=== PATIENT | male | born 1985 | race Caucasian/White ===

== ENCOUNTER 2017-02-23 02:05 | Inpatient (IN) | payer MEDICARE, MEDICAID, OTHER ==
[~2017-02-23] VITALS: Ht 182.9 cm; Wt 63.7 kg
[~2017-02-23 02:05] MED LIST: RISP1 PO
[2017-02-23 02:48] VITALS: BP 154/87; PULSE 118; RESP 16; TEMP 98.5; O2SAT 98
--- NOTE | 2017-02-23 02:58 | PD ---
HPI Chief Complaint: Psychiatric Symptoms Time Seen by Provider: 02:10 Travel History International Travel<30 days: No Contact w/Intl Traveler<30days: No Traveled to known affect area: No History of Present Illness HPI 31-year-old male with history of schizophrenia, currently not taking his medications, presents emergency department under [place] act for psychiatric evaluation. Patient states that he has been having increasing auditory hallucinations. He denies suicidal homicidal ideations. Denies illicit drug use. Does drink alcohol occasionally. He has no acute medical needs at this time. PFSH Past Medical History Bipolar Disorder: Yes Anxiety: Yes Diminished Hearing: No Schizophrenia: Yes Tetanus Vaccination: < 5 Years Influenza Vaccination: No Past Surgical History Surgical History: No Previous Surgery Social History Alcohol Use: No Tobacco Use: Yes Substance Use: No (unknown) Allergies-Medications (Allergen,Severity, Reaction): Coded Allergies: No Known Allergies (Unverified Adverse Reaction, Unknown, 02/23/17) Reported Meds & Prescriptions Reported Meds & Active Scripts Active Risperdal (Risperidone) 1 Mg Tab 2 Mg PO Q12HR 30 Days Review of Systems Except as stated in HPI: all other systems reviewed are Neg Physical Exam Narrative GENERAL: Well-nourished male patient with bizarre affect but in no acute distress SKIN: Focused skin assessment warm/dry. HEAD: Atraumatic. Normocephalic. EYES: Pupils equal and round. No scleral icterus. No injection or drainage. ENT: No nasal bleeding or discharge. Mucous membranes pink and moist. NECK: Trachea midline. No JVD. CARDIOVASCULAR: Tachycardic rate and rhythm. No murmur appreciated. RESPIRATORY: No accessory muscle use. Clear to auscultation. Breath sounds equal bilaterally. GASTROINTESTINAL: Abdomen soft, non-tender, nondistended. Hepatic and splenic margins not palpable. MUSCULOSKELETAL: No obvious deformities. No clubbing. No cyanosis. No edema. NEUROLOGICAL: Awake and alert. No obvious cranial nerve deficits. Motor grossly within normal limits. Normal speech. Data Data Last Documented VS Vital Signs Date Time Temp Pulse Resp B/P (MAP) Pulse Ox O2 Delivery O2 Flow Rate FiO2 02/23/17 02:48 98.5 118 16 154/87 (109) 98 Orders Orders Complete Blood Count With Diff (02/23/17 02:10) Basic Metabolic Panel (Bmp) (02/23/17 02:10) Psych Screen (02/23/17 02:10) Drug Screen, Random Urine (02/23/17 02:10) Alcohol (Ethanol) (02/23/17 02:10) MDM Medical Decision Making Medical Screen Exam Complete: Yes Emergency Medical Condition: Yes Medical Record Reviewed: Yes Differential Diagnosis Mood disorder versus personality disorder versus just reaction disorder versus acute psychosis Narrative Course 31year-old male presents to the emergency department under [place] act for psychiatric evaluation. Patient appears without distress. She does have a bizarre affect. Adamantly denies suicidal homicidal ideations. He has been off this medication for an extended amount of time. Lab work is ordered for medical clearance. Pending no acute lab abnormality, patient is medically cleared and a psychiatric screening for further evaluation and disposition. Mental health screening discussed with the patient. Psychiatric screen ordered. Diagnosis Primary Impression: Schizophrenia, paranoid, chronic Condition: Stable Abby Piedra Feb 23, 2017 02:58
[2017-02-23 03:41] LABS: AUTOMATED NEUTROPHIL # 7.2 TH/MM3 (1.8-7.7); BASOPHIL # 0.1 TH/MM3 (0-0.2); BASOPHIL % 0.6 % (0.0-2.0); EOSINOPHIL # 0.1 TH/MM3 (0-0.4); EOSINOPHIL % 0.9 % (0.0-4.0); HEMATOCRIT 41.1 % (39.0-51.0); HEMOGLOBIN 13.7 GM/DL (13.0-17.0); LYMPH % 16.5 % (9.0-44.0); LYMPHOCYTE # 1.6 TH/MM3 (1.0-4.8); MEAN CELL VOLUME 85.4 FL (80.0-100.0); MEAN CORPUSCULAR HEMOGLOBIN 28.4 PG (27.0-34.0); MEAN CORPUSCULAR HGB CONC 33.3 % (32.0-36.0); MEAN PLATELET VOLUME 8.1 FL (7.0-11.0); MONO % 7.8 % (0.0-8.0); MONOCYTE # 0.8 TH/MM3 (0-0.9); NEUT % 74.2 % (16.0-70.0); PLATELET COUNT 243 TH/MM3 (150-450); RED BLOOD COUNT 4.82 MIL/MM3 (4.50-5.90); RED CELL DISTRIBUTION WIDTH 12.2 % (11.6-17.2); WHITE BLOOD COUNT 9.7 TH/MM3 (4.0-11.0)
[2017-02-23 04:15] VITALS: BP 109/57; PULSE 92; RESP 17; O2SAT 95
[2017-02-23 04:23] LABS: BICARBONATE 25.2 MEQ/L (21.0-32.0); CALCIUM 9.2 MG/DL (8.5-10.1); CREATININE 0.78 MG/DL (0.60-1.30)
[2017-02-23 05:08] VITALS: BP 110/58
[2017-02-23 07:00] VITALS: BP 112/60; RESP 16; O2SAT 97
--- NOTE | 2017-02-23 14:44 | HHI.HP ---
Provisional Diagnosis Admission Date [place] I. Schizophrenia, Certification of Person's Competence To Provide Express and Informed Consent I have personally examined Juan David Elliott , a person being served at [facility] on, Feb 23, 2017 14:40. Express and informed consent means consent voluntarily given in writing, by a competent person, after sufficient explanation and disclosure of the subject matter involved to enable the person to make a knowing and willful decision without any element of force, fraud, deceit, duress, or other form of constraint or coercion. This person is 18 years of age or older, is not now known to be incompetent to consent to treatment with a guardian advocate, and does not have a health care surrogate or proxy currently making medical treatment decisions. I have found this person to be one of the following: [x] Competent to provide express and informed consent, as defined above, for voluntary admission to this facility and is competent to provide express and informed consent for treatment. He/she has the consistent capacity to make well reasoned, willful, and knowing decisions concerning his or her medical or mental health treatment. The person fully and consistently understands the purpose of the admission for examination/placement and is fully capable of personally exercising all rights assured under [place] Incompetent to provide express and informed consent to voluntary admission, and this is incompetent to provide express and informed consent to treatment. The person must be transferred to involuntary status and a petition for a guardian advocate filed with the Circuit Court. [] Refusing to provide express and informed consent to voluntary admission but is competent to provide express and informed consent for treatment. The person must be discharged or transferred to involuntary status. Form shall be completed within 24 hours of a person's arrival at the receiving facility and filed in the clinical record of each person: 1. Admitted on a voluntary basis 2. Permitted to provide express and informed consent to his/her own treatment 3. Allowed to transfer from involuntary to voluntary status 4. Prior to permitting a person to consent to his or her own treatment after having been previously found incompetent to consent to treatment. History of Present Illness Capacity: Has Capacity HPI 31-year-old male with multiyear history of schizophrenia, presents under a [place] act initiated by law enforcement. According to the Michaud act, the patient was creating a disturbance at a [employer] last night. He was acting aggressively towards customers. He was described as disorienting and had been making statements such as "you killed my parents" to [facility]. Upon interview, the patient is obviously a poor historian. He does admit to having command auditory hallucinations that are currently telling him to "be quiet". He is frequently looking around the room as if he is experiencing visual hallucinations. He denies suicidal or homicidal ideation, plan or intent at this time. However, he is standing at the wall of his room, talking to himself and striking at the wall. For this he is being given Zyprexa situs 10 mg once. He does state that he normally takes Risperdal and Ativan but has been off his medicines for several months. Apparently he was living in [place] , where he states his home is. He returned to [place] several months ago and has self reportedly been off his psychotropic medicines since that time. He occasionally uses alcohol but his toxicology screen is negative at this time. Review of Systems ROS Limitations: Clinical Condition Psychiatric: COMPLAINS OF: Anxiety, Hallucinations Except as stated in HPI: all other systems reviewed are Neg Past Psych History Psychological trauma history Unknown Violence risk - others (6 mos) Moderate to high Violence risk - self (6 mos) Moderate to high Substance Abuse History Drugs/Alcohol past 12 months None recently. Past Family Social History Coded Allergies: No Known Allergies (Unverified Allergy, Unknown, 02/23/17) Active Scripts Risperidone (Risperdal) 1 Mg Tab, 2 MG PO Q12HR for health for 30 Days, #60 TAB Prov:Marcus Lundberg MD 10/29/16 Family Psych History Unknown. Patient inadequate historian. Social History Used to have a father who lived locally. Father's last address is a homeless group home. Patient currently has no family support but states he does have family members in [place]. He is unemployed. He is obviously disabled from work. Patient's Strengths (min. 2) Verbal and has access to healthcare. Physical Exam GENERAL: SKIN: Warm and dry. HEAD: Normocephalic. EYES: No scleral icterus. No injection or drainage. NECK: Supple, trachea midline. No JVD or lymphadenopathy. CARDIOVASCULAR: Regular rate and rhythm without murmurs, gallops, or rubs. RESPIRATORY: Breath sounds equal bilaterally. No accessory muscle use. GASTROINTESTINAL: Abdomen soft, non-tender, nondistended. MUSCULOSKELETAL: No cyanosis, or edema. BACK: Nontender without obvious deformity. No CVA tenderness. Vital Signs Vital Signs Date Time Temp Pulse Resp B/P (MAP) Pulse Ox O2 Delivery O2 Flow Rate FiO2 02/23/17 07:00 16 112/60 (77) 97 Room Air 02/23/17 04:15 92 02/23/17 02:48 98.5 Lab Results Test 02/23/17 02:36 White Blood Count 9.7 TH/MM3 Red Blood Count 4.82 MIL/MM3 Hemoglobin 13.7 GM/DL Hematocrit 41.1 % Mean Corpuscular Volume 85.4 FL Mean Corpuscular Hemoglobin 28.4 PG Mean Corpuscular Hemoglobin Concent 33.3 % Red Cell Distribution Width 12.2 % Platelet Count 243 TH/MM3 Mean Platelet Volume 8.1 FL Neutrophils (%) (Auto) 74.2 % Lymphocytes (%) (Auto) 16.5 % Monocytes (%) (Auto) 7.8 % Eosinophils (%) (Auto) 0.9 % Basophils (%) (Auto) 0.6 % Neutrophils # (Auto) 7.2 TH/MM3 Lymphocytes # (Auto) 1.6 TH/MM3 Monocytes # (Auto) 0.8 TH/MM3 Eosinophils # (Auto) 0.1 TH/MM3 Basophils # (Auto) 0.1 TH/MM3 CBC Comment DIFF FINAL Differential Comment Blood Urea Nitrogen 15 MG/DL Creatinine 0.78 MG/DL Random Glucose 90 MG/DL Calcium Level 9.2 MG/DL Sodium Level 140 MEQ/L Potassium Level 3.8 MEQ/L Chloride Level 105 MEQ/L Carbon Dioxide Level 25.2 MEQ/L Anion Gap 10 MEQ/L Estimat Glomerular Filtration Rate 117 ML/MIN Ethyl Alcohol Level 3 MG/DL Mental Status Examination Appearance: Disheveled Consciousness: Alert Orientation: Person, Place, Date/Time Motor Activity: Normal gait Speech: Hesitant Language: Adequate Fund of Knowledge: Adequate Attention and Concentration: Inadequate Memory: Impaired Mood: Appropriate Affect: Anxious Thought Process & Associations: Disorganized Thought Content: Bizarre thinking, Ideas of reference, Hallucinations, Delusional Hallucination Type: Auditory Delusion Type: None Suicidal Ideation: No Suicidal Plan: No Suicidal Intention: No Homicidal Ideation: No Homicidal Plan: No Homicidal Intention: No Insight: Fair Judgment: Poor Assessment & Plan Problem List: (1) Schizophrenia, paranoid, chronic ICD Codes: F20.0 - Paranoid schizophrenia Status: Acute Assessment & Plan Estimated LOS: days. 31-year-old male with multiyear history of schizophrenia , presents with at least several month history of noncompliance with his antipsychotic medications. Patient placed under a [place] act by law enforcement for threatening passersby. Patient was also physically striking the wall of his room. He is responding to auditory hallucinations. For these reasons he is being admitted for further evaluation and treatment. This physician has ordered a CBC and comprehensive metabolic panel to determine if any infectious process or metabolic process might be causing or contributing to the patient's psychosis. Additionally, this physician ordered a thyroid- stimulating hormone level, vitamin B 12 level and vitamin D level as deficiencies in these areas can cause or contribute to confusion and psychosis. This physician has also ordered an EKG to determine the patient's cardiac conduction status prior to significantly changing his psychotropic medicines, which can adversely affect the electrical system of his heart. This physician spoke with the patient's nurse, Abby, regarding his recent behavior. Lastly , case management will be involved to assist with further information gathering and disposition planning. Campbell Baker MD Feb 23, 2017 14:44
[2017-02-23] MEDS ORDERED: ALUMINUM/MAGNESIUM/SIMETH 30 ML CUP PO PRN (14:45)
[2017-02-23] MEDS ORDERED: OLANZapine ODT 10 MG TAB PO ONE (14:45)
[2017-02-23] MEDS ORDERED: ACETAMINOPHEN 325 MG TAB PO PRN (14:45)
[2017-02-23] MEDS ORDERED: LORazepam 2 MG/ML VIAL IM PRN (14:45)
[2017-02-23] MEDS ORDERED: hydrOXYzine HCL 50 MG TAB PO PRN (14:45)
[2017-02-23] MEDS ORDERED: traZODone HCL 50 MG TAB PO PRN (14:45)
[2017-02-23] MEDS ORDERED: MAGNESIUM HYDROXIDE SUSP 30 ML CUP PO PRN (14:45)
[2017-02-23 18:22] VITALS: BP 121/81; PULSE 83; RESP 18; TEMP 98.8; O2SAT 98
[2017-02-23] MEDS: risperiDONE 1 MG TAB PO SCH (20:52)
[2017-02-24 06:28] VITALS: BP 98/53; PULSE 61; RESP 18; TEMP 97.9; O2SAT 100
[2017-02-24] MEDS: risperiDONE 1 MG TAB PO SCH ×2 (08:59→20:26)
[2017-02-24 09:16] LABS: AUTOMATED NEUTROPHIL # 3.2 TH/MM3 (1.8-7.7); BASOPHIL % 0.6 % (0.0-2.0); EOSINOPHIL # 0.2 TH/MM3 (0-0.4); EOSINOPHIL % 3.5 % (0.0-4.0); HEMATOCRIT 39.4 % (39.0-51.0); HEMOGLOBIN 13.2 GM/DL (13.0-17.0); LYMPH % 34.4 % (9.0-44.0); LYMPHOCYTE # 2.1 TH/MM3 (1.0-4.8); MEAN CELL VOLUME 85.9 FL (80.0-100.0); MEAN CORPUSCULAR HEMOGLOBIN 28.8 PG (27.0-34.0); MEAN CORPUSCULAR HGB CONC 33.5 % (32.0-36.0); MEAN PLATELET VOLUME 7.8 FL (7.0-11.0); MONO % 8.8 % (0.0-8.0); MONOCYTE # 0.5 TH/MM3 (0-0.9); NEUT % 52.7 % (16.0-70.0); PLATELET COUNT 232 TH/MM3 (150-450); RED BLOOD COUNT 4.58 MIL/MM3 (4.50-5.90); RED CELL DISTRIBUTION WIDTH 12.1 % (11.6-17.2); WHITE BLOOD COUNT 6.1 TH/MM3 (4.0-11.0)
[2017-02-24 09:44] LABS: ALBUMIN 3.2 GM/DL (3.4-5.0); AST (GOT) 14 U/L (15-37); BICARBONATE 29.9 MEQ/L (21.0-32.0); BLOOD UREA NITROGEN 12 MG/DL (7-18); CHLORIDE 105 MEQ/L (98-107); CREATININE 0.85 MG/DL (0.60-1.30); GLOMERULAR FILTRATION RATE 106 ML/MIN (>89); GLUCOSE,RANDOM 122 MG/DL (74-106); SODIUM (NA) 140 MEQ/L (136-145)
[2017-02-24 09:45] LABS: ALT (GPT) 18 U/L (12-78); CHOLESTEROL 113 MG/DL (120-200); TRIGLYCERIDES 45 MG/DL (42-150)
[2017-02-24 10:20] LABS: ALKALINE PHOSPHATASE 55 U/L (45-117); CHOLESTEROL/ HDL RATIO 1.87 RATIO; HDL CHOLESTEROL 60.3 MG/DL (40.0-60.0); LDL CHOLESTEROL 44 MG/DL (0-99); TOTAL BILIRUBIN ADULT 0.2 MG/DL (0.2-1.0); TOTAL PROTEIN 7.1 GM/DL (6.4-8.2)
--- NOTE | 2017-02-24 11:49 | HHI.PYPN ---
Subjective Remarks Patient is a 31-year-old man, domicile with grandmother, past psychiatric history of schizophrenia, brought under [place] act due to noncompliance medications, auditory hallucinations and was noted to be aggressive toward customers at a nearby [employer] as well as command auditory hallucinations with visual hallucinations which she is noted to be responding to. Patient the ER was noted to target to self as well as hitting the wall which she required Zyprexa 10 mg by mouth 1. Patient was found spitting groups and activities was able to cooperate with interview today with justowriter operator and nurse. Patient noted to be somewhat disorganized with some thought latency and speech latency and noted to be internally preoccupied at times. Patient states that his brought in by police with unclear why patient was poor recollection of events prior to his hospitalization stating that he needed his medications. Patient reports being on risperidone for schizophrenia was able to state exactly oh such. He states he was [place] year ago from [place] and a lacerated medication was about a year ago. He states his mood at this time is "normal" but states feeling sad does not elaborate as to reasons why stating he did not want to talk about it. Patient denies any auditory hallucinations at time of interview stating that he recently did have these perceptual disturbances recently. Patient states that these were not command nature only telling him "not to run". Patient denies any suicide ideation or homicidal ideations at this time. Review of Systems Except as stated in HPI: all other systems reviewed are Neg Mental Status Examination Appearance: Disheveled Consciousness: Alert Orientation: Person, Place, Date/Time Motor Activity: Normal gait Speech: Hesitant, Slow Language: Adequate Fund of Knowledge: Adequate Attention and Concentration: Inadequate Memory: Impaired Mood: Sad Affect: Anxious Thought Process & Associations: Disorganized (at times) Thought Content: Bizarre thinking, Ideas of reference, Hallucinations, Thought blocking, Delusional Hallucination Type: Auditory Delusion Type: None Suicidal Ideation: No Suicidal Plan: No Suicidal Intention: No Homicidal Ideation: No Homicidal Plan: No Homicidal Intention: No Insight: Fair Judgment: Poor Results Labs Labs reviewed Test 02/24/17 08:00 White Blood Count 6.1 TH/MM3 Red Blood Count 4.58 MIL/MM3 Hemoglobin 13.2 GM/DL Hematocrit 39.4 % Mean Corpuscular Volume 85.9 FL Mean Corpuscular Hemoglobin 28.8 PG Mean Corpuscular Hemoglobin Concent 33.5 % Red Cell Distribution Width 12.1 % Platelet Count 232 TH/MM3 Mean Platelet Volume 7.8 FL Neutrophils (%) (Auto) 52.7 % Lymphocytes (%) (Auto) 34.4 % Monocytes (%) (Auto) 8.8 % Eosinophils (%) (Auto) 3.5 % Basophils (%) (Auto) 0.6 % Neutrophils # (Auto) 3.2 TH/MM3 Lymphocytes # (Auto) 2.1 TH/MM3 Monocytes # (Auto) 0.5 TH/MM3 Eosinophils # (Auto) 0.2 TH/MM3 Basophils # (Auto) 0.0 TH/MM3 CBC Comment DIFF FINAL Differential Comment Blood Urea Nitrogen 12 MG/DL Creatinine 0.85 MG/DL Random Glucose 122 MG/DL Total Protein 7.1 GM/DL Albumin 3.2 GM/DL Calcium Level 9.0 MG/DL Alkaline Phosphatase 55 U/L Aspartate Amino Transf (AST/SGOT) 14 U/L Alanine Aminotransferase (ALT/SGPT) 18 U/L Total Bilirubin 0.2 MG/DL Sodium Level 140 MEQ/L Potassium Level 3.9 MEQ/L Chloride Level 105 MEQ/L Carbon Dioxide Level 29.9 MEQ/L Anion Gap 5 MEQ/L Estimat Glomerular Filtration Rate 106 ML/MIN Triglycerides Level 45 MG/DL Cholesterol Level 113 MG/DL LDL Cholesterol 44 MG/DL HDL Cholesterol 60.3 MG/DL Cholesterol/HDL Ratio 1.87 RATIO Vitamin B12 Level 252 PG/ML 25-Hydroxy Vitamin D Total 17.8 ng/ML Thyroid Stimulating Hormone 3rd Gen 1.000 uIU/ML Vitals/IOs Vital Signs Date Time Temp Pulse Resp B/P (MAP) Pulse Ox O2 Delivery O2 Flow Rate FiO2 02/24/17 06:28 97.9 61 18 98/53 (68) 100 02/23/17 07:00 Room Air Assessment & Plan Problem List: (1) Schizophrenia, paranoid, chronic ICD Codes: F20.0 - Paranoid schizophrenia Status: Acute Assessment & Plan Patient is a 31-year-old man who carries a diagnosis of schizophrenia , previous psychiatric admissions, no previous suicide attempts, but compliant with medications for year lucid brought under [place] act for noted to be aggressive toward others in public as well as noted to be talking to self and having command auditory hallucinations. Patient this time continues to be noted to be somewhat disorganized, with some thought blocking as well as speech latency and endorsing recent auditory hallucinations. Patient to continue risperidone 1 mg a.m. and increase to 2 mg at bedtime for psychosis. Collateral Friscia pending from grandmother (Rosmery Gale [phone]). Petition for involuntary hospitals that she started with request second opinion patient at this time is unable to her what hospitalizations necessary due to risk for harm to others due to recent aggressive behavior and current symptomatology. Continue recommendations from primary medical team. Discharge planning in progress Justification for Cont. Inpt. At risk for further decompensation at lower level of care Discharge Planning Patient to return back to grandmother's residence when psychiatric stable Alek Blake MD Feb 24, 2017 11:49
--- NOTE | 2017-02-24 13:47 | PD.PSY.CON ---
Provisional Diagnosis Admission Date Feb 23, 2017 at 14:36 [place] I. Schizophrenia, History of Present Illness Service Psychiatry Consult Requested By Psychiatry Reason for Consult Second opinion Primary Care Physician No Primary Care Physician HPI 31-year-old male with multiyear history of schizophrenia, presents under a [place] act initiated by law enforcement. According to the Michaud act, the patient was creating a disturbance at a [employer] store last night. He was acting aggressively towards customers. He was described as disorienting and had been making statements such as "you killed my parents" to passersby.Upon interview, the patient is obviously a poor historian. He does admit to having command auditory hallucinations that are currently telling him to "be quiet". He is frequently looking around the room as if he is experiencing visual hallucinations. He denies suicidal or homicidal ideation, plan or intent at this time. However, he is standing at the wall of his room, talking to himself and striking at the wall. For this he is being given Zyprexa situs 10 mg once. He does state that he normally takes Risperdal and Ativan but has been off his medicines for several months. Apparently he was living in [place], where he states his home is. He returned to [place] several months ago and has self reportedly been off his psychotropic medicines since that time. He occasionally uses alcohol but his toxicology screen is negative at this time. The patient is a 31 years old white man, homeless, unemployed, but , with psychiatric history of schizophrenia, about 6 psychiatric hospitalizations, last hospitalization here at [facility] in 2017, documentation review, noncompliant with psychotropics, no previous SI attempts, no significant medical history, who was brought to the hospital under [place] act, according to the Michaud act, the patient was creating a disturbance at a [employer] store last night. He was acting aggressively towards customers. He was described as disorienting and had been making statements such as "you killed my parents" to passersby.Upon interview, the patient is obviously a poor historian. He does admit to having command auditory hallucinations that are currently telling him to "be quiet". Consulted to be for second opinion. On psychiatric evaluation patient is calm, cooperative, he says that sometimes he is hearing voices, but he cannot understand what the same to him. Patient reports that he doesn't understand what the reason he is in the hospital. He denies depressive symptoms, denies suicidal and homicidal ideation, he denies visual and auditory hallucinations. However, patient has a very flat affect and he seems to be internally preoccupied. Review of Systems Psychiatric: COMPLAINS OF: Hallucinations Except as stated in HPI: all other systems reviewed are Neg Past Family Social History Coded Allergies: No Known Allergies (Unverified Allergy, Unknown, 02/23/17) Active Scripts Risperidone (Risperdal) 1 Mg Tab, 2 MG PO Q12HR for health for 30 Days, #60 TAB Prov:Marcus Lundberg MD 10/29/16 Current Medications Medications (Trade) Dose Ordered Sig/Armando Route Start Time Stop Time Status Last Admin (Ativan) 1 mg Q6H PRN PO 02/23/17 14:45 (Ativan Inj) 1 mg Q6H PRN IM 02/23/17 14:45 (Tylenol) 650 mg Q4H PRN PO 02/23/17 14:45 (Milk Of Magnesia Liq) 30 ml DAILY PRN PO 02/23/17 14:45 (Mag-Al Plus Susp Liq) 30 ml Q6H PRN PO 02/23/17 14:45 (Desyrel) 50 mg HS PRN PO 02/23/17 14:45 (Atarax) 50 mg Q6H PRN PO 02/23/17 14:45 (risperDAL) 1 mg Q12HR PO 02/23/17 21:00 02/24/17 08:59 Family Psych History He denies family psychiatric history Social History Patient was born and raised in [place], he is homeless, but , unemployed, his highest level of education is 11th grade Patient's Strengths (min. 2) Verbal and has access to healthcare. Physical Exam Vital Signs Vital Signs Date Time Temp Pulse Resp B/P (MAP) Pulse Ox O2 Delivery O2 Flow Rate FiO2 02/24/17 06:28 97.9 61 18 98/53 (68) 100 02/23/17 07:00 Room Air Lab Results Test 02/24/17 08:00 White Blood Count 6.1 TH/MM3 Red Blood Count 4.58 MIL/MM3 Hemoglobin 13.2 GM/DL Hematocrit 39.4 % Mean Corpuscular Volume 85.9 FL Mean Corpuscular Hemoglobin 28.8 PG Mean Corpuscular Hemoglobin Concent 33.5 % Red Cell Distribution Width 12.1 % Platelet Count 232 TH/MM3 Mean Platelet Volume 7.8 FL Neutrophils (%) (Auto) 52.7 % Lymphocytes (%) (Auto) 34.4 % Monocytes (%) (Auto) 8.8 % Eosinophils (%) (Auto) 3.5 % Basophils (%) (Auto) 0.6 % Neutrophils # (Auto) 3.2 TH/MM3 Lymphocytes # (Auto) 2.1 TH/MM3 Monocytes # (Auto) 0.5 TH/MM3 Eosinophils # (Auto) 0.2 TH/MM3 Basophils # (Auto) 0.0 TH/MM3 CBC Comment DIFF FINAL Differential Comment Blood Urea Nitrogen 12 MG/DL Creatinine 0.85 MG/DL Random Glucose 122 MG/DL Total Protein 7.1 GM/DL Albumin 3.2 GM/DL Calcium Level 9.0 MG/DL Alkaline Phosphatase 55 U/L Aspartate Amino Transf (AST/SGOT) 14 U/L Alanine Aminotransferase (ALT/SGPT) 18 U/L Total Bilirubin 0.2 MG/DL Sodium Level 140 MEQ/L Potassium Level 3.9 MEQ/L Chloride Level 105 MEQ/L Carbon Dioxide Level 29.9 MEQ/L Anion Gap 5 MEQ/L Estimat Glomerular Filtration Rate 106 ML/MIN Triglycerides Level 45 MG/DL Cholesterol Level 113 MG/DL LDL Cholesterol 44 MG/DL HDL Cholesterol 60.3 MG/DL Cholesterol/HDL Ratio 1.87 RATIO Vitamin B12 Level 252 PG/ML 25-Hydroxy Vitamin D Total 17.8 ng/ML Thyroid Stimulating Hormone 3rd Gen 1.000 uIU/ML Mental Status Examination Appearance: Disheveled Consciousness: Alert Orientation: Person, Place, Date/Time Motor Activity: Normal gait Speech: Hesitant, Slow Language: Adequate Fund of Knowledge: Adequate Attention and Concentration: Inadequate Memory: Impaired Mood: Sad Affect: Anxious Thought Process & Associations: Disorganized (at times) Thought Content: Bizarre thinking, Ideas of reference, Hallucinations, Thought blocking, Delusional Hallucination Type: Auditory Delusion Type: None Suicidal Ideation: No Suicidal Plan: No Suicidal Intention: No Homicidal Ideation: No Homicidal Plan: No Homicidal Intention: No Insight: Fair Judgment: Poor Assessment & Plan Problem List: (1) Schizophrenia, paranoid, chronic ICD Codes: F20.0 - Paranoid schizophrenia Status: Acute Assessment & Plan: I have seen and examined this patient, reviewed, agitation, I agree and concur with Dr. Murillo assessment and plan. Consult appreciated. Assessment & Plan Estimated LOS: Marcus Lundberg MD Feb 24, 2017 13:46
--- NOTE | 2017-02-24 15:46 | EKG ---
Date Performed: 02/24/2017 Time Performed: 09:12:22 PTAGE: 31 years EKG: SINUS TACHYCARDIA ABNORMAL RHYTHM ECG PREVIOUS TRACING : 10/23/2016 10.13 Compared to prior tracing no significant change DOCTOR: Ulises Delcid Interpretating Date/Time 02/24/2017 15:45:42
[2017-02-24 18:03] VITALS: BP 139/71; PULSE 100; RESP 16; TEMP 99; O2SAT 98
[2017-02-24] MEDS: LORazepam 1 MG TAB PO PRN ×2 (20:51→20:52)
[2017-02-25 05:55] VITALS: BP 100/58; PULSE 67; RESP 18; TEMP 98.7; O2SAT 95
[2017-02-25] MEDS: risperiDONE 1 MG TAB PO SCH (08:53)
[2017-02-25 16:55] VITALS: BP 127/82; PULSE 94; RESP 18; TEMP 98.2; O2SAT 100
--- NOTE | 2017-02-25 17:15 | HHI.PYPN ---
Subjective Remarks Patient seen for follow-up, chart review. Discussion her sister reported the patient slept well with trazodone last evening. Patient was found walking on the unit noted to be slightly more alert and less noted to be responding to internal stimuli although still present. Patient stated that his mood is "good ", continues to report auditory hallucinations although decrease in intensity that come and go last time being earlier today. Patient denies feeling sad and depressed, denied any suicidal homicidal ideations. Denies any delusions at this time. Review of Systems Except as stated in HPI: all other systems reviewed are Neg Mental Status Examination Appearance: Disheveled Consciousness: Alert Orientation: Person, Place, Date/Time Motor Activity: Normal gait Speech: Hesitant, Slow Language: Adequate Fund of Knowledge: Adequate Attention and Concentration: Inadequate Memory: Impaired Mood: Appropriate Affect: Other (constricted) Thought Process & Associations: Linear, Other (concrete) Thought Content: Bizarre thinking, Hallucinations, Thought blocking (less so today), Delusional Hallucination Type: Auditory Delusion Type: None Suicidal Ideation: No Suicidal Plan: No Suicidal Intention: No Homicidal Ideation: No Homicidal Plan: No Homicidal Intention: No Insight: Fair Judgment: Poor Results Vitals/IOs Vital Signs Date Time Temp Pulse Resp B/P (MAP) Pulse Ox O2 Delivery O2 Flow Rate FiO2 02/25/17 16:55 98.2 94 18 127/82 (97) 100 02/23/17 07:00 Room Air Assessment & Plan Problem List: (1) Schizophrenia, paranoid, chronic ICD Codes: F20.0 - Paranoid schizophrenia Status: Acute Assessment & Plan Patient noted to continue to have auditory hallucinations, internally preoccupied but less disorganized today. We'll increase risperidone 1 mg a.m./ 2 mg at bedtime for psychosis, we'll change trazodone to scheduled dosing to assist patient with disturbed sleep. Discharge planning in progress Justification for Cont. Inpt. At risk for further decompensation if at lower level of care Discharge Planning Patient to return back to his grandmother's residence when psychiatrically stable. Alek Blake MD Feb 25, 2017 17:15
[2017-02-25] MEDS: traZODone HCL 50 MG TAB PO SCH (20:29)
[2017-02-25] MEDS: LORazepam 1 MG TAB PO PRN (20:30)
[2017-02-25] MEDS ORDERED: risperiDONE 1 MG TAB PO SCH (21:00)
[2017-02-26 06:08] VITALS: BP 115/66; PULSE 73; RESP 16; TEMP 97.4; O2SAT 99
[2017-02-26] MEDS ORDERED: risperiDONE 1 MG TAB PO SCH (09:00)
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
[2017-02-26 17:55] VITALS: BP 124/74; PULSE 90; RESP 18; TEMP 98.3; O2SAT 99
[2017-02-26] MEDS: traZODone HCL 50 MG TAB PO SCH (20:49)
[2017-02-26] MEDS: risperiDONE 1 MG TAB PO SCH (20:49)
[2017-02-27 05:49] VITALS: BP 127/71; PULSE 93; RESP 18; TEMP 98.6; O2SAT 98
[2017-02-27] MEDS: risperiDONE 1 MG TAB PO SCH (08:33)
[2017-02-27 17:14] VITALS: BP 101/65; PULSE 109; RESP 19; TEMP 98.4; O2SAT 97
--- NOTE | 2017-02-27 17:14 | HHI.PYPN ---
Subjective Remarks Patient seen for follow-up, chart reviewed. Discussion with nursing staff reported patient compliant with medications, at times standing and staring, last evening was jumping on the bed with another patient. Patient was noted to be attending groups but was calm and cooperative with interview. Patient states that he has been feeling "normal", denies any AH, last time being two days ago. He states that he plans on returning back to school and acquiring a job back in [place]. He plans on living with his grandmother and is looking to traveling back up to [place] upon discharge. Review of Systems Except as stated in HPI: all other systems reviewed are Neg Mental Status Examination Appearance: Appropriate Consciousness: Alert Orientation: Person, Place, Date/Time Motor Activity: Normal gait Speech: Hesitant, Slow Language: Adequate Fund of Knowledge: Adequate Attention and Concentration: Inadequate Memory: Impaired Mood: Appropriate Affect: Other (with occasional smiling and laughing) Thought Process & Associations: Intact, Goal directed, Linear Thought Content: Delusional Hallucination Type: Auditory (denies today) Delusion Type: None Suicidal Ideation: No Suicidal Plan: No Suicidal Intention: No Homicidal Ideation: No Homicidal Plan: No Homicidal Intention: No Insight: Fair Judgment: Poor Results Vitals/IOs Vital Signs Date Time Temp Pulse Resp B/P (MAP) Pulse Ox O2 Delivery O2 Flow Rate FiO2 02/27/17 05:49 98.6 93 18 127/71 (89) 98 02/23/17 07:00 Room Air Assessment & Plan Problem List: (1) Schizophrenia, paranoid, chronic ICD Codes: F20.0 - Paranoid schizophrenia Status: Acute Assessment & Plan Patient noted to be more reactive with more affect and with less thought blocking. He denies any AH but continues to be slightly internally preoccupied. Will increase risperidone to 2mg AM/ 3mg HS for psychosis, continue trazodone 50mg PO HS. Continue to monitor mood and behavior. Discharge planning in progress. Justification for Cont. Inpt. At risk for further decompensation if at lower level of care. Discharge Planning To be discharged to grandmother residence when psychiatrically stable. Alek Blake MD Feb 27, 2017 17:14
[2017-02-27] MEDS: traZODone HCL 50 MG TAB PO SCH (20:55)
[2017-02-27] MEDS: risperiDONE 3 MG TAB PO SCH (20:55)
[2017-02-28 05:58] VITALS: PULSE 69; RESP 18; TEMP 97.7; O2SAT 98
[2017-02-28] MEDS: risperiDONE 1 MG TAB PO SCH (08:52)
--- NOTE | 2017-02-28 12:46 | HHI.PYPN ---
Subjective Remarks Pt seen and discussed with staff. No behavioral problems today. He is compliant with medications and denies side effects. He states that he was unable to get to outpatient appointments because of lack of transportation. He states, "I didn't walk b/c I didnt want blood on the streets. People were after me, but that may not be real." No SI/HI Mental Status Examination Appearance: Appropriate Consciousness: Alert Orientation: Person, Place, Date/Time Motor Activity: Normal gait Speech: Hesitant, Slow Language: Adequate Fund of Knowledge: Adequate Attention and Concentration: Inadequate Memory: Impaired Mood: Appropriate Affect: Flat Thought Process & Associations: Linear Thought Content: Delusional Hallucination Type: Auditory (denies today) Delusion Type: Paranoid Suicidal Ideation: No Suicidal Plan: No Suicidal Intention: No Homicidal Ideation: No Homicidal Plan: No Homicidal Intention: No Insight: Fair Judgment: Poor Results Vitals/IOs Vital Signs Date Time Temp Pulse Resp B/P (MAP) Pulse Ox O2 Delivery O2 Flow Rate FiO2 02/28/17 05:58 97.7 69 18 98 Assessment & Plan Problem List: (1) Schizophrenia, paranoid, chronic ICD Codes: F20.0 - Paranoid schizophrenia Status: Acute Assessment & Plan Pt improving. Continue current tx plan. Estimated LOS: days Justification for Cont. Inpt. impairments in reality testing. Apryl Anand MD Feb 28, 2017 12:46
[2017-02-28 17:15] VITALS: BP 140/79; PULSE 92; RESP 16; TEMP 97.8; O2SAT 98
[2017-02-28] MEDS: risperiDONE 3 MG TAB PO SCH (21:00)
[2017-02-28] MEDS: traZODone HCL 50 MG TAB PO SCH (21:00)
[2017-03-01] MEDS: risperiDONE 1 MG TAB PO SCH (09:00)
--- NOTE | 2017-03-01 11:09 | HHI.PYPN ---
Subjective Remarks Pt seen and discussed with staff. He has been calm and free from agitation. He did engage in hygiene activities today. He is compliant with medications. No SI/ HI. He displays some disorganized behaviors during rounds. Mental Status Examination Appearance: Appropriate Consciousness: Alert Orientation: Person, Place, Date/Time Motor Activity: Normal gait Speech: Hesitant, Slow Language: Adequate Fund of Knowledge: Adequate Attention and Concentration: Inadequate Memory: Impaired Mood: Appropriate Affect: Flat Thought Process & Associations: Linear (mostly linear but has some derailments and disorganized behaviors) Thought Content: Delusional Hallucination Type: Auditory (denies today) Delusion Type: Paranoid Suicidal Ideation: No Suicidal Plan: No Suicidal Intention: No Homicidal Ideation: No Homicidal Plan: No Homicidal Intention: No Insight: Fair Judgment: Poor Results Vitals/IOs Vital Signs Date Time Temp Pulse Resp B/P (MAP) Pulse Ox O2 Delivery O2 Flow Rate FiO2 02/28/17 17:15 97.8 92 16 140/79 (99) 98 Assessment & Plan Problem List: (1) Schizophrenia, paranoid, chronic ICD Codes: F20.0 - Paranoid schizophrenia Status: Acute Assessment & Plan Pt improving. Continue current tx plan. Estimated LOS: days Justification for Cont. Inpt. risk of decompensation Apryl Anand MD Mar 01, 2017 11:09
[2017-03-01 17:52] VITALS: BP 138/78; PULSE 73; RESP 16; TEMP 98; O2SAT 98
[2017-03-01] MEDS: traZODone HCL 50 MG TAB PO SCH (21:42)
[2017-03-01] MEDS: risperiDONE 3 MG TAB PO SCH (21:42)
[2017-03-02 06:15] VITALS: BP 112/71; PULSE 86; RESP 17; TEMP 97.3; O2SAT 97
[2017-03-02] MEDS: risperiDONE 1 MG TAB PO SCH ×2 (08:23→09:58)
--- NOTE | 2017-03-02 16:25 | HHI.PYPN ---
Subjective Remarks Patient seen for follow-up, chart reviewed. Discussion she staff reported the patient had a seclusive and quiet but cooperative. Patient is found in the day room, cooperative interview today. Patient states that he has been feeling more motivated with this plan to continue education and work with upon discharge. Patient reports not having any auditory hallucinations for the past 5 days has been attending groups and feels that medications have been helpful. Patient states that his mother expecting him back up in [place] but will be staying with his grandmother in [place]. Review of Systems Except as stated in HPI: all other systems reviewed are Neg Mental Status Examination Appearance: Appropriate Consciousness: Alert Orientation: Person, Place, Date/Time Motor Activity: Normal gait Speech: Unremarkable Language: Adequate Fund of Knowledge: Adequate Attention and Concentration: Inadequate Memory: Impaired Mood: Appropriate Affect: Other (restricted) Thought Process & Associations: Goal directed (restricted), Linear (mostly linear but has some derailments and disorganized behaviors) Thought Content: Appropriate Hallucination Type: None Delusion Type: None Suicidal Ideation: No Suicidal Plan: No Suicidal Intention: No Homicidal Ideation: No Homicidal Plan: No Homicidal Intention: No Insight: Fair Judgment: Impulsive Results Vitals/IOs Vital Signs Date Time Temp Pulse Resp B/P (MAP) Pulse Ox O2 Delivery O2 Flow Rate FiO2 03/02/17 06:15 97.3 86 17 112/71 (85) 97 Assessment & Plan Problem List: (1) Schizophrenia, paranoid, chronic ICD Codes: F20.0 - Paranoid schizophrenia Status: Acute Assessment & Plan Patient noted to have much improvement in his mood as well as cessation of auditory hallucinations and noted to be more organized thought process. Patient future oriented and plans on moving back to [place] where he lives. Any current treatment. Discharge team to assist in providing patient transition back to his home. Discharge planning in progress Justification for Cont. Inpt. At risk for further decompensation if at lower level of care Discharge Planning To be discharged back to his home in [place] Alek Blake MD Mar 02, 2017 16:25
[2017-03-02 18:00] VITALS: BP 123/76; PULSE 87; RESP 17; TEMP 97.7; O2SAT 100
[2017-03-02] MEDS: traZODone HCL 50 MG TAB PO SCH (20:11)
[2017-03-02] MEDS: risperiDONE 3 MG TAB PO SCH (20:11)
[2017-03-03 05:38] VITALS: BP 116/67; PULSE 89; RESP 18; TEMP 96.7; O2SAT 98
[2017-03-03] MEDS: risperiDONE 1 MG TAB PO SCH (09:04)
[2017-03-03] MEDS ORDERED: RISP1 PO (10:37)
[2017-03-03] MEDS ORDERED: TRAZ50TA12 PO (10:37)
[2017-03-03] MEDS ORDERED: RISP3 PO (10:37)
--- NOTE | 2017-03-03 15:08 | HHI.DS ---
Psychiatry Discharge Summary Inpatient Psychiatric care?: Yes Advance Directive: No Reason Not Provided: Due to Patient Condition Mental Health AdvanceDirective: No Health Care Proxy: No Admission Admission Date Feb 23, 2017 at 14:36 Admission Diagnosis: (1) Schizophrenia, paranoid, chronic ICD Code: F20.0 - Paranoid schizophrenia Brief History 31-year-old male with multiyear history of schizophrenia, presents under a [place] act initiated by law enforcement. According to the [place] act, the patient was creating a disturbance at a [employer] store last night. He was acting aggressively towards customers. He was described as disorienting and had been making statements such as "you killed my parents" to passersby.Upon interview, the patient is obviously a poor historian. He does admit to having command auditory hallucinations that are currently telling him to "be quiet". He is frequently looking around the room as if he is experiencing visual hallucinations. He denies suicidal or homicidal ideation, plan or intent at this time. However, he is standing at the wall of his room, talking to himself and striking at the wall. For this he is being given Zyprexa situs 10 mg once. He does state that he normally takes Risperdal and Ativan but has been off his medicines for several months. Apparently he was living in [place], where he states his home is. He returned to [place] several months ago and has self reportedly been off his psychotropic medicines since that time. He occasionally uses alcohol but his toxicology screen is negative at this time. The patient is a 31 years old white man, homeless, unemployed, but , with psychiatric history of schizophrenia, about 6 psychiatric hospitalizations, last hospitalization here at [facility] in 2017, documentation review, noncompliant with psychotropics, no previous SI attempts, no significant medical history, who was brought to the hospital under [place] act, according to the [place]aud act, the patient was creating a disturbance at a [employer] store last night. He was acting aggressively towards customers. He was described as disorienting and had been making statements such as "you killed my parents" to passersby.Upon interview, the patient is obviously a poor historian. He does admit to having command auditory hallucinations that are currently telling him to "be quiet". Consulted to be for second opinion. On psychiatric evaluation patient is calm, cooperative, he says that sometimes he is hearing voices, but he cannot understand what the same to him. Patient reports that he doesn't understand what the reason he is in the hospital. He denies depressive symptoms, denies suicidal and homicidal ideation, he denies visual and auditory hallucinations. However, patient has a very flat affect and he seems to be internally preoccupied. Tobacco Use In Past 30 Days: Refused To Answer Alcohol Use: Never Hospital Course Patient is a 31-year-old man, domicile with grandmother, past psychiatric history of schizophrenia, brought under [place] act due to noncompliance medications, auditory hallucinations and was noted to be aggressive toward customers at a nearby [employer] as well as command auditory hallucinations with visual hallucinations which she is noted to be responding to which he was transferred to the inpatient psychiatry unit for further evaluation and management. Patient was started on risperidone and titrated to 2mg AM/ 3mg HS for psychosis, disorganized thought process and auditory hallucinations. Pt had not presented clinical sx of depression. The hospital course and treatment was based in restarting patient on his medication to re- establish stabilization. Patient was not actively suicidal or homicidal. Patient does not report sx of delusion, denies sx of idea of reference, disorder of self, did not present disorder of awareness. Patient denies sx of derealization or depersonalization. Patient denies sx of PTSD or panic attack. Pt denies feeling of hopelessness, worthlessness or helplessness. Patient denies suicidal or homicidal ideations. Patient denies sx of perceptual disturbance such as AH, VH or delusions. At present time, the patient does not present an acute mental crisis requiring continuous inpatient psych hospitalization. Pt is mentally stable to f/u in outpatient. . Patient denies SI, HI, AVH or delusions. Supportive psychotherapy provided. Patient advised to call 911 or return back to the ED in case of any emergency. Patient agrees with plan. Results Blood Pressure 116 / 67 Vital Signs Date Time Temp Pulse Resp B/P (MAP) Pulse Ox O2 Delivery O2 Flow Rate FiO2 03/03/17 05:38 96.7 89 18 116/67 (83) 98 Laboratory Results Test 02/24/17 08:00 Cholesterol Level 113 MG/DL (120-200) HDL Cholesterol 60.3 MG/DL (40.0-60.0) Hemoglobin A1c 6.0 % (4.3-6.0) LDL Cholesterol 44 MG/DL (0-99) Triglycerides Level 45 MG/DL (42-150) Summary of Procedures none Pending results at discharge: No Medications # of Antipsychotic meds at D/C: 1 Approp Antipsych med options 1 - Minimum of three failed multiple trials of monotherapy. 2 - Documented plan to taper to monotherapy due to previous use of multiple meds OR cross-taper in progress at D/C. 3 - Documentation of augmentation of Clozapine. 4 - Justification other than those listed in allowable values 1-3, document here : Discharge Discharge Date: Mar 03, 2017 Discharge Diagnosis: (1) Schizophrenia, paranoid, chronic ICD Code: F20.0 - Paranoid schizophrenia Status: Acute Pt Condition on Discharge: Stable Discharge Disposition: Discharge Home Discharge Instructions Diet Instructions: As Tolerated, No Restrictions Activities you can perform: Regular-No Restrictions Scheduled Appointment: [facility] Discharge Time > 30 minutes Mental Status Examination Appearance: Appropriate Consciousness: Alert Orientation: Person, Place, Date/Time Motor Activity: Normal gait Speech: Unremarkable Language: Adequate Fund of Knowledge: Adequate Attention and Concentration: Inadequate Memory: Impaired Mood: Appropriate Affect: Appropriate Thought Process & Associations: Goal directed, Linear Thought Content: Appropriate Hallucination Type: None Delusion Type: None Suicidal Ideation: No Suicidal Plan: No Suicidal Intention: No Homicidal Ideation: No Homicidal Plan: No Homicidal Intention: No Insight: Adequate Judgment: Adequate Discharge/Advance Care Plan Health Problems: (1) Schizophrenia, paranoid, chronic Goals to promote your health * To prevent worsening of your condition and complications * To maintain your health at the optimal level Directions to meet your goals Take your medications as prescribed Follow your dietary instruction Follow activity as directed Keep your appointments as scheduled Take your immunizations and boosters as scheduled If your symptoms worsen call your PCP, if no PCP go to Urgent Care Center or Emergency Room For 08/09 questions related to your inpatient stay or results of tests pending at discharge, please contact Dr. Alek Blake at Smoking is Dangerous to Your Health. Avoid second hand smoking Alek Blake MD Mar 03, 2017 15:08
== END 2017-03-03 14:25 | disposition home or self-care (01) | DRG 885 ==
LOC: NEPD 02:05 → NEDA 14:36 → H270 18:08
PROVIDERS: ADMIT Student in an Organized Health Care Education/Training Program; ATTEND Student in an Organized Health Care Education/Training Program
DX: F20.0 Paranoid schizophrenia (principal); F31.9 Bipolar disorder, unspecified; W22.01XA Walked into wall, initial encounter; F41.9 Anxiety disorder, unspecified; G47.9 Sleep disorder, unspecified; Z91.14 Patient's other noncompliance with medication regimen; Z72.0 Tobacco use; Z91.5 Personal history of self-harm; Z59.0 Homelessness
CPT/HCPCS: 80048; 80053; 80061; 80307; 82306; 82607; 83036; 84443; 85025; 93005; 99285